=== PATIENT | male | born 1995 | race American Indian/Alaskan Native ===

== ENCOUNTER 2024-12-22 10:29 | Outpatient (REF) | payer MEDICAID, OTHER, SELFPAY ==
--- NOTE | ~2024-12-22 | XR_ITS ---
EXAMINATION: XR CHEST CLINICAL INFORMATION: chronic cough COMPARISON: None available. TECHNIQUE: 2 views of the chest were obtained. FINDINGS: No hyperinflation. No consolidation, pleural effusion or pneumothorax. Cardiomediastinal silhouette size is normal. Mild S-shaped curvature of the thoracic spine. XR/XR chest 2V IMPRESSION: No acute airspace disease. Negative chest x-ray. Electronically signed by: Maco Tellez MD 12/22/2024 11:00 AM EDT
--- OUTSIDE RECORDS SUMMARY | 2024-12-22 11:17 | XMS_ITS | Clinical Summary ---
Author Organization 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 Name Role Phone Pcp, Unknown Primary Care Provider Unavailabl e Allergies No known active allergies Medications No known medications Encounters Date Type Department Care Team Description 09/29/2024 6:38 PM EDT - 09/29/2024 10:26 PM EDT Emergency [facility] [address] [place] [address] Discharge Disposition: Home or Self Care 09/29/2024 Procedure [facility] [address] [place] [address] 09/29/2024 Procedure Pass [address] [address] from Last 3 Months Social History Tobacco Use Types Packs/Day Years Used Date Smoking Tobacco: Never Assessed Education Answer Date Recorded Are you interested in more education? Not on alvin e 09/29/2024 Are you concerned about learning? Not on file 09/29/2024 No 09/29/2024 No 09/29/2024 Food Answer Date Recorded Within the past 6 months we worried whether our food would run out before we got money to buy more. Never True 09/29/2024 Within the past 6 months the food we bought just didn't last and we didn't have enough money to get more. Never True Residential Stability Answer Date Recor ded What is your housing situation today? I have chen sing 09/29/2024 How many times have you move d in the past 12 months? Zero (I did not move) 09/29/2024 Paying for Meds Answer Date Recorded Do you have trouble paying for medicines? No 09/29/2024 Paying Utility Bills Answer Date Record ed Do you have trouble paying your heating or elect ricity bill? No 09/29/2024 Transportation Answer Date Recorded Has the lack of transportati on kept you from medical appointments or from getting medications? No 09/29/2024 Digital Access Answer Date Recorded No 09/29/2024 Yes 09/29/2024 Do you have reliable internet access at home? Ye s 09/29/2024 Do you have a device (e.g., phone, tablet, computer) with a working camera? Yes 09/29/2024 Intimate Partner Violence Answer Date R ecorded Are you denied basic needs s uch as food, clothing, or medical care? No 09/29/2024 In the past 12 months have y ou been in a relationship with a person who hurts, threatens, or tries to control you? No 09/29/2024 Are you denied basic needs s uch as food, clothing, or medical care? No 09/29/2024 In the past 12 months have y ou been in a relationship with a person who hurts, threatens, or tries to control you? No 09/29/2024 Sex and Gender Information Value Date Recorded Sex Assigned at Male 09/29/2024 8:03 PM EDT Legal Sex Male 6:07 PM EDT Gender Identity Male 09/29/2024 8:03 PM EDT Sexual Orientation Choose not to disclose 2024 8:03 PM EDT Last Filed Vital Signs Vital Sign Reading Time Taken Comments Blood Pressure 115/77 09/29/2024 9:47 PM EDT Pulse 83 09/29/2024 9:47 PM EDT Temperature 36.1 C (97 F) 09/29/2024 9:47 PM EDT Respiratory Rate 18 09/29/2024 9:47 PM EDT Oxygen Saturation 99% 09/29/2024 9:47 PM EDT Inhaled Oxygen Concentration - - Weight 83 kg (183 lb) 09/29/2024 6:19 PM EDT Height 170 cm (5' 6.93 ) 09/29/2024 6:19 PM EDT Body Mass Index 28.72 09/29/2024 6:19 PM EDT Plan of Treatment Health Maintenance Due Date Last Done Comments Adult Td,Tdap Booster 1993 DEPRESSION SCREENING 2005 SMOKING Hx and SMOKELESS TOB ACCO SCREENING 2006 HEPATITIS C SCREENING 2011 HIV ONE-TIME SCREENING (18-6 5 YEARS) 2011 COVID-19 VACCINE (2023-2 5 season) 2024 HEPATITIS A VACCINES Aged Out No long er eligible based on patient's age to complete this topic HIB VACCINES Aged Out No longer eligi ble based on patient's age to complete this topic MENINGOCOCCAL VACCINES (ACWY) Aged Out No longer eligible based on patient's age to complete this topic MENINGOCOCCAL VACCINES (B) Aged Out N o longer eligible based on patient's age to complete this topic PNEUMOCOCCAL VACCINES (0-49 years) Aged Out No longer eligible based on patient's age to complete this topic Medical Devices Not on file Procedures Procedure Name Priority Date/Time Associated Diagnosis Comments XR KNEE 4 OR MORE VIEWS (LEFT) Routine 09/29/2024 8:28 PM EDT XR TIBIA FIBULA 2 VIEWS (LEFT) Routine 09/29/2024 8:[address] CERVICAL SPINE WITHOUT CONTRAST Routine 09/29/2024 8:[address] HEAD WITHOUT CONTRAST Routine 09/29/2024 8:15 PM EDT XR ANKLE 3 OR MORE VIEWS (LEFT) Routine 09/29/2024 6:39 PM EDT from Last 3 Months Results * XR KNEE 4 OR MORE VIEWS (LEFT) (09/29/2024 8:28 PM EDT) Anatomical Region Laterality Modality Knee Left Computed Radiogr aphy 09/29/2024 9:49 PM EDT Impressions 09/29/2024 10:06 PM EDT No fracture or dislocation. ATTESTATION: I, Uche Lau as teaching physician, have reviewed the images for this case and if necessary edited the report originally created by Alfa Pollard MD. Narrative 09/29/2024 10:06 PM EDT XR KNEE 4 OR MORE VIEWS (LEFT), XR TIBIA FIBULA 2 VIEWS (LEFT) Referring clinician's provided indication for this examination in Epic: Trauma; S/P Fall COMPARISON: None. FINDINGS: Left knee and tibia/fibula: No fracture. Normal alignment. Normal joint spaces. No effusion. No lytic or blastic lesion. Visualized portion of the ankle appears normal. No soft tissue swelling. Procedure Note Uche Lau, - 09/29/2024 XR KNEE 4 OR MORE VIEWS (LEFT), XR TIBIA FIBULA 2 VIEWS (LEFT) Referring clinician's provided indication for this examination in Epic:Trauma; S/P Fall COMPARISON: None. FINDINGS: Left knee and tibia/fibula: No fracture. Normal alignment. Normal jointspaces. No effusion. No lytic or blastic lesion. Visualized portion of theankle appears normal. No soft tissue swelling. IMPRESSION: No fracture or dislocation. ATTESTATION: Uche Lorenz as teaching physician, have reviewed theimages for this case and if necessary edited the report originally createdby Alfa Pollard MD. Roselyn Bullock PA-C IMG XR LOWER EXTREMIT Y Final Result * XR Tibia Fibula 2 Views (Left) (09/29/2024 8:28 PM EDT) Anatomical Region Laterality Modality Leg Left Computed Radiogr aphy 09/29/2024 9:49 PM EDT Impressions 09/29/2024 10:06 PM EDT No fracture or dislocation. ATTESTATION: Uche Lorenz as teaching physician, have reviewed the images for this case and if necessary edited the report originally created by Alfa Pollard MD. Narrative 09/29/2024 10:06 PM EDT XR KNEE 4 OR MORE VIEWS (LEFT), XR TIBIA FIBULA 2 VIEWS (LEFT) Referring clinician's provided indication for this examination in [facility]: Trauma; S/P Fall COMPARISON: None. FINDINGS: Left knee and tibia/fibula: No fracture. Normal alignment. Normal joint spaces. No effusion. No lytic or blastic lesion. Visualized portion of the ankle appears normal. No soft tissue swelling. Procedure Note Uche Lau DO - 09/29/2024 XR KNEE 4 OR MORE VIEWS (LEFT), XR TIBIA FIBULA 2 VIEWS (LEFT) Referring clinician's provided indication for this examination in [facility]:Trauma; S/P Fall COMPARISON: None. FINDINGS: Left knee and tibia/fibula: No fracture. Normal alignment. Normal jointspaces. No effusion. No lytic or blastic lesion. Visualized portion of theankle appears normal. No soft tissue swelling. IMPRESSION: No fracture or dislocation. ATTESTATION: Uche Lorenz as teaching physician, have reviewed theimages for this case and if necessary edited the report originally createdby Alfa Pollard MD. Roselyn Bullock PA-C IMG XR LOWER EXTREMIT Y Final Result * CT CERVICAL SPINE WITHOUT CONTRAST (09/29/2024 8:15 PM EDT) Anatomical Region Laterality Modality C-spine Computed Tomogra phy 09/29/2024 9:28 PM EDT Impressions 09/29/2024 10:04 PM EDT 1. No acute intracranial findings. 2. No acute fracture or traumatic malalignment of the cervical spine. ATTESTATION: Uche Lorenz as teaching physician, have reviewed the images for this case and if necessary edited the report originally created by Alfa Pollard MD. Narrative 09/29/2024 10:[address] HEAD WITHOUT CONTRAST, CT CERVICAL SPINE WITHOUT CONTRAST Referring clinician's provided indication for this examination in [facility]: * Head trauma, abnormal mental status (Age 19-64y) TECHNIQUE: CTs of the head and cervical spine were performed without intravenous contrast using tailored dose modulation techniques. Images were reconstructed in the axial, coronal, and sagittal planes. COMPARISON: None. FINDINGS: HEAD: Brain Parenchyma: No midline shift, mass effect, parenchymal hemorrhage, or evidence of acute territorial infarct. Ventricular System and Extra-Axial Spaces: No extra-axial fluid collections. Basal cisterns are patent. No hydrocephalus. Prominent left middle cranial fossa and retrocerebellar CSF spaces, likely arachnoid cysts. Osseous and Extracranial Structures: No calvarial fracture or significant soft tissue hematoma. No significant paranasal sinus disease. No orbital abnormality. CERVICAL SPINE: Alignment and Vertebrae: Straightening of the cervical lordosis. No traumatic malalignment or acute fracture. Discs and Endplates: Preserved intervertebral disc spaces. Other Findings: No paraspinal hematoma. Procedure Note Uche Lau, DO - 09/29/2024 CT HEAD WITHOUT CONTRAST, CT CERVICAL SPINE WITHOUT CONTRAST Referring clinician's provided indication for this examination in Epic: *Head trauma, abnormal mental status (Age 19-64y) TECHNIQUE: CTs of the head and cervical spine were performed withoutintravenous contrast using tailored dose modulation techniques. Imageswere reconstructed in the axial, coronal, and sagittal planes. COMPARISON: None. FINDINGS: HEAD: Brain Parenchyma: No midline shift, mass effect, parenchymal hemorrhage,or evidence of acute territorial infarct. Ventricular System and Extra-Axial Spaces: No extra-axial fluidcollections. Basal cisterns are patent. No hydrocephalus. Prominent leftmiddle cranial fossa and retrocerebellar CSF spaces, likely arachnoidcysts. Osseous and Extracranial Structures: No calvarial fracture or significantsoft tissue hematoma. No significant paranasal sinus disease. No orbitalabnormality. CERVICAL SPINE: Alignment and Vertebrae: Straightening of the cervical lordosis. Notraumatic malalignment or acute fracture. Discs and Endplates: Preserved intervertebral disc spaces. Other Findings: No paraspinal hematoma. IMPRESSION: 1. No acute intracranial findings. 2. No acute fracture or traumatic malalignment of the cervical spine. ATTESTATION: I, Uche Lau as teaching physician, have reviewed theimages for this case and if necessary edited the report originally createdby Alfa Pollard MD. Roselyn Bullock PA-C IMG CT XSPECIALTY ORD ERABLES Final Result * CT HEAD WITHOUT CONTRAST (09/29/2024 8:15 PM EDT) Anatomical Region Laterality Modality Head Computed Tomogra phy 09/29/2024 9:28 PM EDT Impressions 09/29/2024 10:04 PM EDT 1. No acute intracranial findings. 2. No acute fracture or traumatic malalignment of the cervical spine. ATTESTATION: I, Uche Lau as teaching physician, have reviewed the images for this case and if necessary edited the report originally created by Alfa Pollard MD. Narrative 09/29/2024 10:[address] HEAD WITHOUT CONTRAST, CT CERVICAL SPINE WITHOUT CONTRAST Referring clinician's provided indication for this examination in [facility]: * Head trauma, abnormal mental status (Age 19-64y) TECHNIQUE: CTs of the head and cervical spine were performed without intravenous contrast using tailored dose modulation techniques. Images were reconstructed in the axial, coronal, and sagittal planes. COMPARISON: None. FINDINGS: HEAD: Brain Parenchyma: No midline shift, mass effect, parenchymal hemorrhage, or evidence of acute territorial infarct. Ventricular System and Extra-Axial Spaces: No extra-axial fluid collections. Basal cisterns are patent. No hydrocephalus. Prominent left middle cranial fossa and retrocerebellar CSF spaces, likely arachnoid cysts. Osseous and Extracranial Structures: No calvarial fracture or significant soft tissue hematoma. No significant paranasal sinus disease. No orbital abnormality. CERVICAL SPINE: Alignment and Vertebrae: Straightening of the cervical lordosis. No traumatic malalignment or acute fracture. Discs and Endplates: Preserved intervertebral disc spaces. Other Findings: No paraspinal hematoma. Procedure Note Uche Lau DO - 09/29/2024 CT HEAD WITHOUT CONTRAST, CT CERVICAL SPINE WITHOUT CONTRAST Referring clinician's provided indication for this examination in [facility]: *Head trauma, abnormal mental status (Age 19-64y) TECHNIQUE: CTs of the head and cervical spine were performed withoutintravenous contrast using tailored dose modulation techniques. Imageswere reconstructed in the axial, coronal, and sagittal planes. COMPARISON: None. FINDINGS: HEAD: Brain Parenchyma: No midline shift, mass effect, parenchymal hemorrhage,or evidence of acute territorial infarct. Ventricular System and Extra-Axial Spaces: No extra-axial fluidcollections. Basal cisterns are patent. No hydrocephalus. Prominent leftmiddle cranial fossa and retrocerebellar CSF spaces, likely arachnoidcysts. Osseous and Extracranial Structures: No calvarial fracture or significantsoft tissue hematoma. No significant paranasal sinus disease. No orbitalabnormality. CERVICAL SPINE: Alignment and Vertebrae: Straightening of the cervical lordosis. Notraumatic malalignment or acute fracture. Discs and Endplates: Preserved intervertebral disc spaces. Other Findings: No paraspinal hematoma. IMPRESSION: 1. No acute intracranial findings. 2. No acute fracture or traumatic malalignment of the cervical spine. ATTESTATION: I, Uche Lau as teaching physician, have reviewed theimages for this case and if necessary edited the report originally createdby Alfa Pollard MD. Roselyn HASSANC IMG CT HEAD/NECK Nubia l Result * XR ANKLE 3 OR MORE VIEWS (LEFT) (09/29/2024 6:39 PM EDT) Anatomical Region Laterality Modality Ankle Left Computed Radiogr aphy 09/29/2024 8:01 PM EDT Impressions 09/29/2024 8:04 PM EDT No fracture or dislocation. Lateral malleolar soft tissue swelling. Narrative 09/29/2024 8:04 PM EDT XR ANKLE 3 OR MORE VIEWS (LEFT) Referring clinician's provided indication for this examination in Epic: Pain; Trauma COMPARISON: None FINDINGS: Soft tissues overlying the lateral malleolus. No fracture. Normal alignment. Symmetric ankle mortise. Normal joint spaces. Procedure Note Sheyla Garibay MD - 09/29/2024 XR ANKLE 3 OR MORE VIEWS (LEFT) Referring clinician's provided indication for this examination in Epic:Pain; Trauma COMPARISON: None FINDINGS: Soft tissues overlying the lateral malleolus. No fracture. Normalalignment. Symmetric ankle mortise. Normal joint spaces. IMPRESSION: No fracture or dislocation. Lateral malleolar soft tissue swelling. 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 It is not the complete legal health record.[facility]
--- OUTSIDE RECORDS SUMMARY | 2024-12-22 11:17 | XMS_ITS | Clinical Summary ---
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 Do not crush or chew. 30 capsule 11 4 Active fish oil ([place]-3) 500 MG capsule Take 2 capsules (1,000 mg) by mouth 2 times daily. 360 capsule 3 4 Active albuterol 108 (90 Base) MCG/ACT inhaler Inhale 2 puffs every 6 (six) hours if needed for wheezing. 18 g 11 5 12/23/19 26 Active fluticasone (Flonase) 50 MCG/ACT nasal spray Administer 1 spray into each nostril Once per day. Shake gently. Before first use, prime pump. After use, clean tip and replace cap. 16 g 2 5 12/23/19 26 Active Active Problems Problem Noted Date Diagnosed Date Epigastric pain 12/22/2024 Cough variant asthma 12/22/2024 Chronic cough 12/22/2024 Acute right ankle pain 10/08/2024 Sprain of left ankle 10/08/2024 Assessment & Plan (10/28/2024 3:59 PM EDT): Films in ER negative, beryl bandage provided Referral options reviewed but pt has limited insurance. Pt and spouse verbalized understanding of RICE High blood triglycerides 01/29/2024 Post concussion syndrome 01/22/2024 Overweight 01/22/2024 Gastritis without bleeding 01/22/2024 Encounters Date Type Department Care Team Description 12/22/2024 9:30 AM EDT Office Visit [facility] [address] [place] [phone] Imani Lindsey NP Epigastric pain (Primary Dx); Cough variant asthma; Chronic cough 12/22/2024 Travel 12/21/2024 Telephone [facility] [address] [place] [phone] Johanna Hodge MA Chart Prep 11/08/2024 Telephone [facility] [address] [place] [phone] Imani Lindsey NP Scheduling F/U 10/08/2024 1:00 PM EDT Office Visit [facility] [address] [place] [address] [phone] Imani Lindsey NP Acute right ankle pain (Primary Dx); Sprain of left ankle, unspecified ligament, subsequent encounter 10/08/2024 Telephone [facility] [address], [place] [phone] Ora Park MD New Patient appt. from Last 3 Months Social History Tobacco Use Types Packs/Day Years Used Date Smoking Tobacco: Never Passive Smoke Exposure: Never Smokeless Tobacco: Never Tobacco Cessation:Counseling Given: Not Answered Alcohol Use Standard Drinks/Week Comments Not Currently 0 (1 standard drink = 0.6 oz pur e alcohol) Alcohol Answer Date Recorded How often do you have a drink containing alcohol ? 0 01/22/2024 How many drinks containing a lcohol do you have on a typical day when you are drinking? 0 01/22/2024 How often do you have six or more drinks on one occasion? 0 01/22/2024 Housing Stability Answer Date Recorded What is your housing situation today? I do not have housing (Staying with others, in a hotel, in a nursing home, living outside on the street, on a beach, in a car, or in a park 01/22/[address] you li ve. Do you have problems with any of the following? None of the above 01/22/2024 Food Insecurity Answer Date Recorded Within the past 12 months, y ou worried that your food would run out before you got money to buy more: Sometimes True 2024 Within the past 12 months,th e food you bought just didn't last and you didn't have enough money to get more: Sometimes True 12/22/2024 Transportation Answer Date Recorded In the past 12 months, has l ack of transportation kept you from medical appts, meetings, work or from getting things needed for daily living? Yes, it has kept me from medical appointments or getting medications. 12/22/2024 Intimate Partner Violence Answer Date R ecorded Within the last year, have y ou been afraid of your partner or ex-partner? 2 01/22/2024 Within the last year, have y ou been humiliated or emotionally abused in other ways by your partner or ex-partner? 2 Within the last year, have y ou been kicked, hit, slapped, or otherwise physically hurt by your partner or ex-partner? 2 01/22/2024 Within the last year, have y ou been raped or forced to have any kind of sexual activity by your partner or ex-partner? 2 01/22/2024 Utilities Answer Date Recorded In the past 12 months, has t he electric, gas, oil or water company threatened to shut off services in your home? No 01/22/2024 Depression Answer Date Recorded Patient Health Questionnaire-2 Score 0 12/22/2024 Internet Access Answer Date Recorded Internet Access Q1 No 12/22/2024 Internet Access Q2 I cannot afford it 12/22/2024 Sex and Gender Information Value Date Recorded Sex Assigned at Male 01/07/2024 12:49 PM EDT Legal Sex Male 12:48 PM EDT Gender Identity Male 01/07/2024 12:49 PM EDT Sexual Orientation Straight 01/07/2024 1: 16 PM EDT Last Filed Vital Signs Vital Sign Reading Time Taken Comments Blood Pressure 110/72 12/22/2024 9:24 AM EDT Pulse 98 12/22/2024 9:24 AM EDT Temperature 36 C (96.8 F) 12/22/2024 9:24 AM EDT Respiratory Rate 16 12/22/2024 9:24 AM EDT Oxygen Saturation 99% 12/22/2024 9:24 AM EDT Inhaled Oxygen Concentration - - Weight 82.1 kg (181 lb) 12/22/2024 9:24 AM EDT Height 172.5 cm (5' 7.91 ) 12/22/2024 9:24 AM ED T Body Mass Index 27.59 12/22/2024 9:24 AM EDT Plan of Treatment Upcoming Encounters Date Type Department Care Team (Late st Contact Info) Description 12/24/2024 1:00 PM EDT Office Visit [facility] [address] [place] [phone] Hannah Correa, GUIDO [address] [place] [address] 02/21/2025 4:00 PM EDT Office Visit [facility] [address], [place] [phone] Imani Lindsey NP [address] [place], [place] [phone] Health Maintenance Due Date Last Done Comments Disability Screening 1995 Family Planning (PISQ) 01/17/2008 HPV Vaccines (1 - Male 3-dos e series) 01/17/2008 DTaP/Tdap/Td Vaccines (1 - Tdap) 01/17/2012 Hepatitis B Vaccines (1 of 3 - 19+ 3-dose series) 01/17/2012 Pneumococcal Vaccine: Pediatrics (0 to 5 Years) and At-Risk Patients (6 to 49) Years (1 of 2 - PCV) 01/17/2012 COVID-19 Vaccine ( - 2023-2 5 season) 2024 Influenza Vaccine (#1) 2025 Alcohol/Substance Use Screening 01/21/2025 01/22/2024 SDOH Screening 01/21/2025 01/22/2024 Depression Screening 12/22/2025 12/22/2024, 12/22/2024 Tobacco Screening 12/22/2025 12/22/2024 Zoster Vaccines (1 of 2) 2043 RSV Patients and Patients Aged 60 years or older (1 - 1-dose 75+ series) 01/17/2068 HIV Screening Completed 01/22/2024 Hepatitis C Screening Completed 01/22/2024 HIB Vaccines Aged Out No longer eligi ble based on patient's age to complete this topic Hepatitis A Vaccines Aged Out No long er eligible based on patient's age to complete this topic IPV Vaccines Aged Out No longer eligi ble based on patient's age to complete this topic Meningococcal B Vaccine Aged Out No l onger eligible based on patient's age to complete this topic Meningococcal Vaccine Aged Out No miguel dereck eligible based on patient's age to complete this topic RSV under 20 months Aged Out No longe r eligible based on patient's age to complete this topic Rotavirus Vaccines Aged Out No longer eligible based on patient's age to complete this topic Procedures Procedure Name Priority Date/Time Associated Diagnosis Comments XR CHEST 2 VIEWS Routine 12/22/2024 10:0 8 AM EDT Cough variant asthma Chronic cough HEPATITIS C AB W/REFL TO HCV RNA, QN, PCR Routine 01/22/2024 3:39 PM EDT Screen for STD (sexually transmitted disease) HIV 1/2 ANTIGEN/ANTIBODY, FOURTH GENERATION W/RFL Routine 01/22/2024 3:39 PM EDT Screen for STD (sexually transmitted disease) from Last 3 Months or Most Recently Relevant to Health Maintenance Results * XR Chest 2 Views (12/22/2024 10:08 AM EDT) Anatomical Region Laterality Modality Chest Radiographic Keiko ging 12/22/2024 10:0 8 AM EDT Narrative 12/22/2024 11:02 AM EDT [address] [address] XRay Report Signed Patient: Leon Narayan MR#: [id number] : 1995 Acct:[id number] Age/Sex: 29 / M ADM Date: 12/22/24 Loc: HO.HHCX Attending Dr: Imani Lindsey PROFESSOR IN FAMILY STUDIES Ordering Physician: Imani Lindsey NP Date of Service: 12/22/24 Procedure(s): XR chest 2V Accession Number(s): [id number] cc: Imani Lindsey PROFESSOR IN FAMILY STUDIES EXAMINATION: XR CHEST CLINICAL INFORMATION: chronic cough COMPARISON: None available. TECHNIQUE: 2 views of the chest were obtained. FINDINGS: No hyperinflation. No consolidation, pleural effusion or pneumothorax. Cardiomediastinal silhouette size is normal. Mild S-shaped curvature of the thoracic spine. XR/XR chest 2V IMPRESSION: No acute airspace disease. Negative chest x-ray. Electronically signed by: Maco Tellez MD 12/22/2024 11:00 AM EDT RP Dictated By: Maco Ruffin MD Signed By: <Electronically signed by Maco Pacheco MD in OV> 12/22/24 1100 DD/ 1008 TD/TT: 12/22/24 1057 Body Component Engineer: Procedure Note Donotuseinterpreter, Image - 12/22/2024 [place] [address] XRay Report Signed Patient: Leon Narayan MR#: [id number] : 1995Acct:[id number] Age/Sex: 29 / MADM Date: 12/22/24 Loc: HO.HHCX Attending Dr: Imani Lindsey PROFESSOR IN FAMILY STUDIES Ordering Physician: Imani Lindsey NP Date of Service: 12/22/24 Procedure(s): XR chest 2V Accession Number(s): [id number] cc: Imani Lindsey PROFESSOR IN FAMILY STUDIES EXAMINATION: XR CHEST CLINICAL INFORMATION: chronic cough COMPARISON: None available. TECHNIQUE: 2 views of the chest were obtained. FINDINGS: No hyperinflation. No consolidation, pleural effusion or pneumothorax. Cardiomediastinal silhouette size is normal. Mild S-shaped curvature of the thoracic spine. XR/XR chest 2V IMPRESSION: No acute airspace disease. Negative chest x-ray. Electronically signed by: Maco Tellez MD 12/22/2024 11:00 AM EDT RP Dictated By: Maco Ruffin MD Signed By: <Electronically signed by Maco Pacheco MDin OV> 12/22/24 1100 DD/ 1008 TD/TT: 12/22/24 1057 Body Component Engineer: us Imani Lindsey PROFESSOR IN FAMILY STUDIES IMG XR PROCEDURES Final Result * Hepatitis C Antibody with Reflex to HCV, RNA, Quantitative, Real-Time PCR (01/22/2024 3:39 PM EDT) Hepatitis C Antibody NON-REACT LIGIA NON-REACT LIGIA [facility] [employer] Comment: HCV antibody was non-reactive. There is no laboratory evidence of HCV infection. In most cases, no further action is required. However, if recent HCV exposure is suspected, a test for HCV RNA (test code 91745) is suggested. For additional information please refer to http://education.Adlyfe/faq/PEV73p0 (This link is being provided for informational/ educational purposes only.) Blood Venous blood specimen / Unknown 01/22/2024 3:39 PM EDT 01/22/2024 3:39 PM EDT Narrative [facility] - 01/23/2024 7:17 AM EDT FASTING:NO PATIENT NOT FASTING; ADVISED TO RETURN FOR COLLECTION. FASTING: NO Branden Nelson MD LAB BLOOD ORDERABLES Final Res ult [facility] [address], [place] [address] [facility] [address] [place] [address] * HIV-1/2 Antigen and Antibodies, Fourth Generation, with Reflexes (01/22/2024 3:39 PM EDT) HIV Antigen/Antibody, 4th Generation NON-REAC TIVE NON-REAC TIVE [facility] [employer] Comment: HIV-1 antigen and HIV-1/HIV-2 antibodies were not detected. There is no laboratory evidence of HIV infection. PLEASE NOTE: This information has been disclosed to you from records whose confidentiality may be protected by state law. If your state requires such protection, then the state law prohibits you from making any further disclosure of the information without the specific written consent of the person to whom it pertains, or as otherwise permitted by law. A general authorization for the release of medical or other information is NOT sufficient for this purpose. For additional information please refer to http://education.Adlyfe/faq/NTX972 (This link is being provided for informational/ educational purposes only.) The performance of this assay has not been clinically validated in patients less than 2 years old. Blood Venous blood specimen / Unknown 01/22/2024 3:39 PM EDT 01/22/2024 3:39 PM EDT Narrative [facility] - 01/23/2024 7:17 AM EDT FASTING:NO PATIENT NOT FASTING; ADVISED TO RETURN FOR COLLECTION. FASTING: NO Branden Nelson MD LAB BLOOD ORDERABLES Final Res ult [facility] [address], [place] [address] [facility] [address] [place] [address] from Last 3 Months or Most Recently Relevant to Health Maintenance Insurance [facility] FULL Care Teams Sanding Supervisor Relationship Specialty Start Date End Date Imani Lindsey NP [address] [place] [phone] PCP - General Family Medicine 10/08/24
== END 2024-12-22 10:30 | disposition home or self-care (01) ==
LOC: HO.HHCX 10:29
PROVIDERS: PCP Nurse Practitioner Family; Visit Provider Nurse Practitioner Family
DX: R05.3 Chronic cough (principal); J45.901 Unspecified asthma with (acute) exacerbation
CPT/HCPCS: 71046

== ENCOUNTER → 2024-12-22 10:47 | Outpatient (BNV) | payer SELFPAY | PROVIDERS: PCP Nurse Practitioner Family; Visit Provider Radiology Diagnostic Radiology | DX: R05.3 Chronic cough (principal) | CPT/HCPCS: 71046 ==